=== PATIENT | male | born 1960 | race Caucasian/White ===

== ENCOUNTER 2017-03-29 08:06 | Day surgery (SDC) | payer OTHER ==
[~2017-03-29 08:06] MED LIST: Lactated Ringers 1,000 ML IV SCH
[2017-03-29] MEDS ORDERED: Lidocaine 2% 100 MG/5 ML Syringe IVPUSH ONE (10:45)
[2017-03-29] MEDS ORDERED: Midazolam 1 MG/ML 2 ML SDV IV ONE (10:45)
[2017-03-29] MEDS ORDERED: Propofol 200 MG/20 ML SDV IV ONE (10:45)
--- NOTE | 2017-03-29 11:10 | PCM.OPNOTE ---
- General Post-Op/Procedure Note Date of Surgery/Procedure: 03/29/17 Operative Procedure(s): egd with bx Findings: gastritis friable mucosa Pre Op Diagnosis: Fe def anemia Post-Op Diagnosis: gastritis. friable mucosa Anesthesia Technique: MAC Primary Surgeon: Dominick Harper Anesthesia Provider: Valeria Lieberman Pathology: gastric mucosa Complications: None Condition: Good Free Text/Narrative:: see dictation
[2017-03-29 11:51] VITALS: BP 123/75
--- NOTE | 2017-03-29 14:53 | OR ---
DATE OF OPERATION: 03/29/2017 SURGEON: Dominick Harper MD PROCEDURE PERFORMED: Esophagogastroduodenoscopy with cold forceps biopsy. PREOPERATIVE DIAGNOSES: 1. Iron-deficiency anemia. 2. History of reflux disease. POSTOPERATIVE DIAGNOSIS: Gastritis. INDICATIONS FOR PROCEDURE: This is a 56-year-old white male, who recently found to have an anemia. He has symptoms of gastroesophageal reflux disease and had a recent scope within the past year, so EGD was offered and accepted. DESCRIPTION OF OPERATION: After an excellent IV sedation was administered, the bite block was inserted. The flexible endoscope was passed without difficulty down the patient's esophagus into the stomach. The stomach was insufflated and scope was passed through the pylorus to the second portion of duodenum and slowly withdrawn. The following findings were noted: The duodenum was unremarkable. Stomach especially in the area of the antrum had a very friable mucosa, this was biopsied and submitted. Esophagus was essentially unremarkable. The stomach was deflated, scope was removed. The patient tolerated the procedure well and was taken to recovery room in good condition. /[id number] /MODL
== END 2017-03-29 12:12 | disposition home or self-care (01) ==
LOC: FB.SDS 08:06
PROVIDERS: ATTEND Surgery
PROC: 0DB68ZX Excision of Stomach, Via Natural or Artificial Opening Endoscopic, Diagnostic (ICD-10-PCS; principal; 2017-03-29)
DX: D50.9 Iron deficiency anemia, unspecified (principal); K29.50 Unspecified chronic gastritis without bleeding; K21.9 Gastro-esophageal reflux disease without esophagitis; E11.9 Type 2 diabetes mellitus without complications; Z79.84 Long term (current) use of oral hypoglycemic drugs; E78.5 Hyperlipidemia, unspecified; M19.90 Unspecified osteoarthritis, unspecified site; E66.9 Obesity, unspecified; N40.1 Benign prostatic hyperplasia with lower urinary tract symptoms; I10 Essential (primary) hypertension; Z79.82 Long term (current) use of aspirin; Z79.899 Other long term (current) drug therapy; Z87.891 Personal history of nicotine dependence
CPT/HCPCS: 43239; 82962; 88305; 88342; J2250; J2704; J7120